=== PATIENT | male | born 1990 | race African-American/Black ===

== ENCOUNTER 2018-01-23 09:37 | Emergency (ER) | payer SELFPAY ==
[~2018-01-23] VITALS: Ht 188 cm; Wt 61.0 kg
[2018-01-23] MEDS ORDERED: SODIUM CHLORIDE 0.9% 1,000 ML IV ONE (10:13)
[2018-01-23] MEDS ORDERED: MORPHINE SULFATE 4 MG/ML CPJ (NOT FOR IM USE) IV STA (10:13)
[2018-01-23] MEDS ORDERED: ONDANSETRON HCL 4MG/2ML VIAL IV STA (10:13)
[2018-01-23] MEDS ORDERED: HYDROCODONE/ACETAMINOPHEN 5/325MG TABLET PO ONE (10:30)
[2018-01-23 10:56] LABS: CHLORIDE 107 mEq/L (98-107)
[2018-01-23 11:19] LABS: RED BLOOD CELL COUNT 2.38 mill/uL (4.7-6.1)
[2018-01-23 11:20] LABS: BASOPHILS % 1.3 % (0.0-2.0); EOSINOPHILS % 2.9 % (0.0-5.0); HEMATOCRIT. 22.1 % (42.0-52.0); LYMPHOCYTES % 27.1 % (20.0-50.0); MEAN CORPUSCULAR HEMOGLOBIN 33.7 pg (28.0-32.0); MEAN CORPUSCULAR VOLUME 92.7 fL (80.0-94.0); MEAN PLATELET VOLUME 9.4 fl (7.4-10.4); NEUTROPHILS % 58.7 % (40.0-76.0); PLATELET 218 x1000/uL (130-400); RED CELL DISTRIBUTION WIDTH 20.3 % (11.6-14.6)
[2018-01-23 12:29] VITALS: BP 112/67
== END 2018-01-23 12:33 | disposition home or self-care (01) ==
LOC: ER 10:03
DX: D57.00 Hb-SS disease with crisis, unspecified (principal); D64.9 Anemia, unspecified; F12.10 Cannabis abuse, uncomplicated; R94.31 Abnormal electrocardiogram [ECG] [EKG]
CPT/HCPCS: 36415; 71045; 80048; 85025; 85044; 93005; 99285; J2270; J7030; Z7610; J2405

== ENCOUNTER 2018-02-01 08:33 | Emergency (ER) | payer SELFPAY ==
[~2018-02-01] VITALS: Ht 188 cm; Wt 61.0 kg
[2018-02-01] MEDS ORDERED: MORPHINE SULFATE 4 MG/ML CPJ (NOT FOR IM USE) IV ONE (09:45)
[2018-02-01 09:58] LABS: HEMATOCRIT. 23.3 % (42.0-52.0); HEMOGLOBIN. 8.6 g/dL (14.0-18.0); MEAN CORPUSCULAR HEMOGLOBIN 34.1 pg (28.0-32.0); MEAN CORPUSCULAR VOLUME 92.5 fL (80.0-94.0); MEAN PLATELET VOLUME 8.6 fl (7.4-10.4); PLATELET 226 x1000/uL (130-400); RED BLOOD CELL COUNT 2.52 mill/uL (4.7-6.1); RED CELL DISTRIBUTION WIDTH 20.6 % (11.6-14.6)
[2018-02-01 10:02] LABS: CHLORIDE 104 mEq/L (98-107)
[2018-02-01 10:05] LABS: INR 1.1; PROTHROMBIN TIME 11.7 sec (9.4-11.6)
[2018-02-01 11:02] LABS: NUCLEATED RED BLOOD CELLS 2 /100 WBC; PLATELET ESTIMATE NORMAL
[2018-02-01 11:40] VITALS: BP 123/78
== END 2018-02-01 11:42 | disposition home or self-care (01) ==
LOC: ER 08:33
DX: R52 Pain, unspecified (principal); D57.1 Sickle-cell disease without crisis; F12.90 Cannabis use, unspecified, uncomplicated
CPT/HCPCS: 36415; 80053; 85025; 85044; 85610; 99284; Z7610; J2270